=== PATIENT | female | born 1990 | race Caucasian/White ===

== ENCOUNTER 2017-03-24 11:36 | Emergency (ER) | payer BC ==
[2017-03-24] MEDS ORDERED: Lidocaine 1% PF 5 ML VIAL ONE (12:07)
== END 2017-03-24 12:40 | disposition home or self-care (01) ==
LOC: ERS 11:36
DX: L02.415 Cutaneous abscess of right lower limb (principal); J45.909 Unspecified asthma, uncomplicated; E10.9 Type 1 diabetes mellitus without complications; F17.210 Nicotine dependence, cigarettes, uncomplicated
CPT/HCPCS: 10060; J2001

== ENCOUNTER 2017-07-06 10:23 | Emergency (ER) | payer BC ==
[2017-07-06 11:15] LABS: #Basophils 0.1 thou/uL (0.0-0.2); #Eosinphils 0.6 thou/uL (0.0-0.7); #Lymphocytes 2.6 thou/uL (1.20-3.40); #Monocytes 0.4 thou/uL (0.11-0.59); #Neutrophils 7.2 thou/uL (1.40-6.50); %Basophils 0.8 % (0.0-1.0); %Eosinophils 5.5 % (0.0-10.0); %Lymphocytes 23.7 % (21.0-51.0); %Monocytes 3.9 % (0.0-10.0); Hemoglobin 15.6 g/dL (12.0-16.0); Mean Corpuscular HGB CONC 33.4 g/dL (32.0-36.0); Mean Corpuscular Hemoglobin 28.6 pg (27.0-31.0); Mean Corpuscular Volume 85.7 fl (81.0-99.0); Mean Platelet Volume 8.8 fL (7.4-10.4); Platelet Count 252 thou/uL (130-400); RBC Distribution Width 12.2 % (11.5-14.5); Red Blood Cell (RBC) Count 5.44 mill/uL (4.20-5.40)
[2017-07-06 11:22] LABS: BHCG - Serum Negative (NEGATIVE); Pregs Control Background? CLEAR/WHITE (CLR/WHITE); Pregs Control Bar Appear? YES (CONTROL BAR)
[2017-07-06 11:39] LABS: ALT (SGPT) 15 U/L (8-55); AST (SGOT) 11 U/L (5-34); Alkaline Phosphatase 73 U/L (40-150); Anion Gap 15 mmol/L (10-20); BUN (Urea Nitrogen) 11 mg/dL (7.0-18.7); Bilirubin, Total 0.5 mg/dL (0.2-1.2); CK (CPK) 45 U/L (29-168); Calc. Creatinine Clearance 0 mL/min (70-130); Calcium 9.6 mg/dL (7.8-10.44); Carbon Dioxide 23 mmol/L (22-29); Chloride 104 mmol/L (98-107); Estimated GFR-MDRD Greater than 90; Globulin 3.7 g/dL (2.4-3.5); Glucose 329 mg/dL (70-105); Lipase 32 U/L (8-78); Potassium 3.9 mmol/L (3.5-5.1); Protein, Total 7.7 g/dL (6.0-8.3); Sodium 138 mmol/L (136-145)
[2017-07-06 11:42] LABS: Bilirubin Negative (Negative); Blood, Urine Negative (Negative); Clarity CLEAR (Clear); Glucose, Urine (Dipstick) >=1000 mg/dL (Negative); Leukocyte Negative (Negative); Nitrite Positive (Negative); Protein, Urine (Dipstick) Negative (Neg-Trace)
[2017-07-06 11:44] LABS: CKMB 1.2 ng/mL (0-6.6); Troponin I Less than 0.010 ng/mL (< 0.028)
[2017-07-06 11:45] LABS: Bacteria/HPF 4+ HPF (None Seen); Hyaline Casts/LPF 0-3 HYALINE CAST LPF (0-3 Hyaline); Pathc Cast-AUWi Flag 0.27 (0-2.49); Squamous Epithelial 0-3 HPF (0-3)
[2017-07-06 11:54] LABS: Specific Gravity, Urine 1.043 (1.002-1.036)
--- NOTE | 2017-07-06 11:58 | RAD ---
PORTABLE AP CHEST RADIOGRAPH: Date: 07-06-17 History: Chest pain. Comparison: 10-20-14 FINDINGS: Cardiac silhouette and pulmonary vasculature are within normal limits. The lungs remain clear. There has been no interval change when compared to the prior exam. IMPRESSION: No acute cardiopulmonary process. POS: [facility]
--- NOTE | 2017-07-24 22:09 | EKG ---
Test Reason : Blood Pressure : / mmHG Vent. Rate : 113 BPM Atrial Rate : 113 BPM P-R Int : 124 ms QRS Dur : 096 ms QT Int : 338 ms P-R-T Axes : 020 096 015 degrees QTc Int : 463 ms Sinus tachycardia Rightward axis Borderline ECG Confirmed by VIANEY CORRAL, LUCIA ([id number]), editor index KIMBER ROGERS ([id number]) on 07/24/2017 10:08:37 PM Referred By: Confirmed By:LUCIA WINTERS MD
== END 2017-07-06 13:05 | disposition home or self-care (01) ==
LOC: ERS 10:23
DX: R07.9 Chest pain, unspecified (principal); E86.0 Dehydration; N39.0 Urinary tract infection, site not specified; J11.1 Influenza due to unidentified influenza virus with other respiratory manifestations; E10.9 Type 1 diabetes mellitus without complications; F17.210 Nicotine dependence, cigarettes, uncomplicated; I10 Essential (primary) hypertension; J45.909 Unspecified asthma, uncomplicated; Z79.4 Long term (current) use of insulin; Z79.899 Other long term (current) drug therapy
CPT/HCPCS: 36415; 36416; 71045; 80053; 81003; 81015; 82010; 82550; 82553; 83690; 84484; 84703; 85025; 87804; 93005; 96361; 96374

== ENCOUNTER 2017-07-23 20:31 | Emergency (ER) | payer BC ==
[2017-07-23 21:07] LABS: Bilirubin Negative (Negative); Blood, Urine Negative (Negative); Clarity CLEAR (Clear); Glucose, Urine (Dipstick) >=1000 mg/dL (Negative); Leukocyte Negative (Negative); Nitrite Negative (Negative); Protein, Urine (Dipstick) Trace mg/dL (Neg-Trace); Specific Gravity, Urine 1.043 (1.002-1.036); Urobilinogen 0.2 mg/dL (0.2-1.0); pH, Urine 5.5 (5.0-9.0)
[2017-07-23 21:41] LABS: Pregnancy Test - Urine (BHCG) Negative (Negative); Pregu Control Background? CLEAR/WHITE (CLR/WHITE); Pregu Control Bar Appear? YES (CONTROL BAR); Specific Gravity 1.043 (1.002-1.036)
[2017-07-23 22:01] LABS: #Basophils 0.1 thou/uL (0.0-0.2); #Eosinphils 0.6 thou/uL (0.0-0.7); #Lymphocytes 3.8 thou/uL (1.20-3.40); #Monocytes 0.5 thou/uL (0.11-0.59); #Neutrophils 5.7 thou/uL (1.40-6.50); %Monocytes 4.7 % (0.0-10.0); %Neutrophils 53.3 % (42.0-75.0); Hemoglobin 14.6 g/dL (12.0-16.0); Mean Corpuscular HGB CONC 33.1 g/dL (32.0-36.0); Mean Corpuscular Hemoglobin 28.5 pg (27.0-31.0); Mean Corpuscular Volume 86.1 fl (81.0-99.0); Platelet Count 263 thou/uL (130-400); RBC Distribution Width 12.6 % (11.5-14.5); Red Blood Cell (RBC) Count 5.14 mill/uL (4.20-5.40); White Blood Cell (WBC) Count 10.7 thou/uL (4.8-10.8)
[2017-07-23 22:23] LABS: ALT (SGPT) 19 U/L (8-55); AST (SGOT) 11 U/L (5-34); Albumin 4.2 g/dL (3.5-5.0); Alkaline Phosphatase 69 U/L (40-150); Anion Gap 15 mmol/L (10-20); BUN (Urea Nitrogen) 11 mg/dL (7.0-18.7); Bilirubin, Total 0.4 mg/dL (0.2-1.2); Calc. Creatinine Clearance 0 mL/min (70-130); Calcium 9.7 mg/dL (7.8-10.44); Carbon Dioxide 24 mmol/L (22-29); Chloride 104 mmol/L (98-107); Estimated GFR-MDRD Greater than 90; Globulin 3.4 g/dL (2.4-3.5); Glucose 209 mg/dL (70-105); Protein, Total 7.6 g/dL (6.0-8.3); Sodium 139 mmol/L (136-145)
[2017-07-23] MEDS ORDERED: Ketorolac Tromethamine 30 MG/ML VIAL ONE (23:13)
--- NOTE | 2017-07-23 23:32 | CT ---
ABDOMEN CT WITHOUT CONTRAST PELVIC CT WITHOUT CONTRAST 07/23/17 HISTORY: Abdominal pain. Right flank pain. COMPARISON: 12/28/16. TECHNIQUE: Abdomen and pelvic CT performed without IV or oral contrast. Coronal reformatted images are submitted for interpretation. FINDINGS: ABDOMEN CT: The lung bases are clear. Heart size is normal. No significant pericardial effusion. The visualized a ricardo has a normal caliber. No periaortic fat stranding. Symmetric attenuation of the psoas muscles. Contracted gallbladder likely due to nonfasting state. Limited evaluation of the solid organs due to lack of IV contrast. Grossly, the solid organs are unremarkable. No gastrohepatic, retrocrural or per iportal lymphadenopathy. There are a few scattered nonspecific mesenteric lymph nodes. No mesenteric mass, free air or free fl uid. Limited evaluation of the alimentary canal due to lack of oral contrast. No evidence of bowel obstruc tion. No caliber appendix. Minimal diverticulosis of the sigmoid colon. No diverticulitis. Bilaterally, no hydronephrosis, nephrolithiasis or perinephric fat stranding. Bilateral ureters have a normal caliber. No hydroureter, periureteral fat stranding or ureterolithiasis. Stable hypodensity in the left renal cortex, too small to characterize. PELVIC CT: The uterus and adnexal structures are grossly unremarkable. Urinary bladder is unremarkable. No pelvi c mass, lymphadenopathy, free air or free fluid. Chronic changes to the visualized spine. IMPRESSION: 1. No evidence of nephrolithiasis or obstructive uropathy. 2. Normal caliber appendix. 3. Chronic changes to the thoracic and lumbar spine. POS: [facility]
== END 2017-07-23 23:37 | disposition home or self-care (01) ==
LOC: ERS 20:31
DX: R10.31 Right lower quadrant pain (principal); E10.9 Type 1 diabetes mellitus without complications; Z79.84 Long term (current) use of oral hypoglycemic drugs; Z79.899 Other long term (current) drug therapy
CPT/HCPCS: 74176; 80053; 81003; 81025; 85025; 87086; 96361; 96374; J1885

== ENCOUNTER 2017-12-19 11:24 | Emergency (ER) | payer BC ==
--- NOTE | 2017-12-19 12:26 | RAD ---
TWO VIEWS OF THE RIGHT FOREARM: COMPARISON: None. HISTORY: Fell in the shower with right forearm and elbow pain. FINDINGS: Two views of right forearm show no evidence of acute fracture or dislocation. Mild soft tissue swell ing is seen. No degenerative changes are seen. IMPRESSION: No evidence of acute osseous abnormality. POS: [facility]
--- NOTE | 2017-12-19 12:28 | RAD ---
FOUR VIEWS OF THE RIGHT ELBOW: COMPARISON: 08/21/15. HISTORY: Fall in the shower with elbow pain. FINDINGS: Four views of the right elbow show no evidence of acute fracture or dislocation. No elbow effusion i s seen. Mild soft tissue swelling is seen. No degenerative changes are present. IMPRESSION: No evidence of acute osseous abnormality. POS: [facility]
[2017-12-19] MEDS ORDERED: Ketorolac Tromethamine 30 MG/ML VIAL ONE (12:54)
[2017-12-19] MEDS ORDERED: Bacitracin Zinc 1 Packet ONE (12:57)
== END 2017-12-19 16:30 | disposition home or self-care (01) ==
LOC: ERS 11:24
DX: S50.01XA Contusion of right elbow, initial encounter (principal); E10.9 Type 1 diabetes mellitus without complications; F41.9 Anxiety disorder, unspecified; F32.9 Major depressive disorder, single episode, unspecified; F17.210 Nicotine dependence, cigarettes, uncomplicated; Z79.899 Other long term (current) drug therapy; Z79.4 Long term (current) use of insulin; W18.11XA Fall from or off toilet without subsequent striking against object, initial encounter; Y92.002 Bathroom of unspecified non-institutional (private) residence as the place of occurrence of the external cause
CPT/HCPCS: 96372; J1885

== ENCOUNTER 2018-04-18 21:25 | Emergency (ER) | payer BC ==
[2018-04-18 22:21] LABS: Bilirubin Negative (Negative); Blood, Urine Trace (Negative); Clarity CLOUDY (Clear); Glucose, Urine (Dipstick) 100 mg/dL (Negative); Leukocyte Small (Negative); Nitrite Negative (Negative); Protein, Urine (Dipstick) 300 mg/dL (Neg-Trace); Specific Gravity, Urine 1.018 (1.002-1.036); Urobilinogen 0.2 mg/dL (0.2-1.0)
[2018-04-18 22:26] LABS: Bacteria/HPF 2+ HPF (None Seen)
[2018-04-18 22:28] LABS: Pathc Cast-AUWi Flag 9.01 (0-2.49)
[2018-04-18 22:30] LABS: #Eosinphils 0.1 thou/uL (0.0-0.7); #Lymphocytes 2.5 thou/uL (1.20-3.40); #Monocytes 0.8 thou/uL (0.11-0.59); #Neutrophils 10.9 thou/uL (1.40-6.50); %Basophils 0.2 % (0.0-1.0); %Eosinophils 0.9 % (0.0-10.0); %Lymphocytes 17.6 % (21.0-51.0); %Monocytes 5.3 % (0.0-10.0); Hemoglobin 13.4 g/dL (12.0-16.0); Mean Corpuscular HGB CONC 33.2 g/dL (32.0-36.0); Mean Corpuscular Volume 84.2 fL (78.0-98.0); Mean Platelet Volume 8.8 fL (7.4-10.4); Platelet Count 284 thou/uL (130-400); RBC Distribution Width 12.2 % (11.5-14.5); Red Blood Cell (RBC) Count 4.79 mill/uL (4.20-5.40); White Blood Cell (WBC) Count 14.3 thou/uL (4.8-10.8)
[2018-04-18 22:44] LABS: Crystals/HPF 1+ CA OXALATE HPF (Negative)
[2018-04-18 22:48] LABS: Pregu Control Background? CLEAR/WHITE (CLR/WHITE); Pregu Control Bar Appear? YES (CONTROL BAR); Specific Gravity 1.018 (1.002-1.036)
[2018-04-18 22:51] LABS: Pregnancy Test - Urine (BHCG) Negative (Negative)
[2018-04-18 22:55] LABS: ALT (SGPT) 16 U/L (8-55); AST (SGOT) 10 U/L (5-34); Albumin 4.3 g/dL (3.5-5.0); Alkaline Phosphatase 55 U/L (40-150); Anion Gap 12 mmol/L (10-20); BUN (Urea Nitrogen) 16 mg/dL (7.0-18.7); Bilirubin, Total 0.6 mg/dL (0.2-1.2); Calc. Creatinine Clearance 0 mL/min (70-130); Carbon Dioxide 25 mmol/L (22-29); Chloride 104 mmol/L (98-107); Estimated GFR-MDRD 73; Globulin 3.5 g/dL (2.4-3.5); Glucose 196 mg/dL (70-105); Potassium 3.8 mmol/L (3.5-5.1); Protein, Total 7.8 g/dL (6.0-8.3); Sodium 137 mmol/L (136-145)
[2018-04-18] MEDS ORDERED: Ondansetron PF 4 MG/2 ML Vial ONE (23:05)
[2018-04-18] MEDS ORDERED: Ketorolac Tromethamine 30 MG/ML VIAL ONE (23:05)
== END 2018-04-19 00:08 | disposition home or self-care (01) ==
LOC: ERS 21:25
DX: N39.0 Urinary tract infection, site not specified (principal); E10.9 Type 1 diabetes mellitus without complications; F32.9 Major depressive disorder, single episode, unspecified; F41.9 Anxiety disorder, unspecified; J45.909 Unspecified asthma, uncomplicated; F17.210 Nicotine dependence, cigarettes, uncomplicated; Z71.6 Tobacco abuse counseling
CPT/HCPCS: 80053; 81003; 81015; 81025; 85025; 87804; 96361; 96374; 96375; 99406; J1885; J2405

== ENCOUNTER 2018-07-01 12:43 | Emergency (ER) | payer BC ==
[2018-07-01 14:27] LABS: #Eosinphils 0.3 thou/uL (0.0-0.7); #Lymphocytes 2.4 thou/uL (1.20-3.40); #Monocytes 0.5 thou/uL (0.11-0.59); #Neutrophils 6.4 thou/uL (1.40-6.50); %Basophils 0.2 % (0.0-1.0); %Eosinophils 2.7 % (0.0-10.0); %Lymphocytes 25.1 % (21.0-51.0); %Monocytes 4.8 % (0.0-10.0); %Neutrophils 67.1 % (42.0-75.0); Hemoglobin 13.1 g/dL (12.0-16.0); Mean Corpuscular HGB CONC 33.7 g/dL (32.0-36.0); Mean Corpuscular Hemoglobin 28.1 pg (27.0-31.0); Mean Corpuscular Volume 83.4 fL (78.0-98.0); Mean Platelet Volume 8.6 fL (7.4-10.4); Platelet Count 287 thou/uL (130-400); RBC Distribution Width 12.3 % (11.5-14.5); Red Blood Cell (RBC) Count 4.66 mill/uL (4.20-5.40); White Blood Cell (WBC) Count 9.5 thou/uL (4.8-10.8)
[2018-07-01 14:52] LABS: ALT (SGPT) 22 U/L (8-55); AST (SGOT) 15 U/L (5-34); Albumin 4.1 g/dL (3.5-5.0); Alkaline Phosphatase 64 U/L (40-150); Anion Gap 12 mmol/L (10-20); BUN (Urea Nitrogen) 10 mg/dL (7.0-18.7); Bilirubin, Total 0.7 mg/dL (0.2-1.2); Calc. Creatinine Clearance 0 mL/min (70-130); Calcium 9.3 mg/dL (7.8-10.44); Carbon Dioxide 24 mmol/L (22-29); Chloride 105 mmol/L (98-107); Estimated GFR-MDRD Greater than 90; Globulin 3.6 g/dL (2.4-3.5); Glucose 150 mg/dL (70-105); Potassium 3.8 mmol/L (3.5-5.1); Protein, Total 7.7 g/dL (6.0-8.3); Sodium 137 mmol/L (136-145)
[2018-07-01 15:04] LABS: Pregnancy Test - Urine (BHCG) Negative (Negative); Pregu Control Background? CLEAR/WHITE (CLR/WHITE); Pregu Control Bar Appear? YES (CONTROL BAR); Specific Gravity 1.023 (1.002-1.036)
--- NOTE | 2018-07-01 15:29 | RAD ---
RIGHT FOOT THREE VIEWS: HISTORY: Pain. COMPARISON: None. FINDINGS: No acute fracture or malalignment. Lisfranc interval is maintained. No periostitis or erosions. IMPRESSION: No evidence for osteomyelitis. POS: [facility]
[2018-07-01] MEDS ORDERED: Bacitracin Zinc 1 Packet ONE (15:49)
== END 2018-07-01 15:53 | disposition home or self-care (01) ==
LOC: ERS 12:43
DX: L03.031 Cellulitis of right toe (principal); E10.9 Type 1 diabetes mellitus without complications; J45.909 Unspecified asthma, uncomplicated; F41.9 Anxiety disorder, unspecified; F32.9 Major depressive disorder, single episode, unspecified; F17.210 Nicotine dependence, cigarettes, uncomplicated; Z79.84 Long term (current) use of oral hypoglycemic drugs; Z79.899 Other long term (current) drug therapy
CPT/HCPCS: 36415; 36416; 80053; 81025; 85025

== ENCOUNTER 2018-08-04 12:03 | Emergency (ER) | payer BC | END 2018-08-04 13:18 | disposition home or self-care (01) | LOC: ERS 12:03 | DX: J06.9 Acute upper respiratory infection, unspecified (principal); E10.9 Type 1 diabetes mellitus without complications; F17.210 Nicotine dependence, cigarettes, uncomplicated | CPT/HCPCS: 87804; 99284 ==

== ENCOUNTER 2019-01-15 10:45 | Emergency (ER) | payer BC, SELFPAY ==
[2019-01-15 11:14] LABS: Bilirubin Negative (Negative); Blood, Urine Negative (Negative); Clarity Clear (Clear); Glucose, Urine (Dipstick) Normal (Negative); Leukocyte Negative Leu/uL (Negative); Nitrite Negative (Negative); Protein, Urine (Dipstick) Negative (Neg-Trace); Urobilinogen Normal mg/dL (Less than 2)
[2019-01-15 11:20] LABS: Pregnancy Test - Urine (BHCG) POSITIVE (Negative); Pregu Control Background? CLEAR/WHITE (CLR/WHITE); Pregu Control Bar Appear? YES (CONTROL BAR)
[2019-01-15] MEDS ORDERED: cefTRIAXone\\ROCEPHIN 250 MG VIAL ONE (11:49)
[2019-01-15] MEDS ORDERED: Lidocaine 1% PF 5 ML VIAL ONE (11:50)
[2019-01-15] MEDS ORDERED: Azithromycin 250 MG TAB ONE (11:50)
[2019-01-17 01:28] LABS: Chlamydia by PCR DETECTED (NotDetected); GC by PCR Not Detected (NotDetected)
== END 2019-01-15 12:07 | disposition home or self-care (01) ==
LOC: ERS 10:45
DX: O99.89 Other specified diseases and conditions complicating pregnancy, childbirth and the puerperium (principal); N89.8 Other specified noninflammatory disorders of vagina; M54.5 Low back pain; E11.9 Type 2 diabetes mellitus without complications; F32.9 Major depressive disorder, single episode, unspecified; F17.210 Nicotine dependence, cigarettes, uncomplicated; Z79.84 Long term (current) use of oral hypoglycemic drugs
CPT/HCPCS: 81003; 81025; 87086; 87480; 87491; 87510; 87591; 87660; 96372; 99283; J0696; J2001

== ENCOUNTER 2019-01-28 18:46 | Emergency (ER) | payer BC, SELFPAY ==
[2019-01-28 20:06] LABS: #Eosinphils 0.2 thou/uL (0.0-0.7); #Lymphocytes 2.5 thou/uL (1.20-3.40); #Monocytes 0.7 thou/uL (0.11-0.59); #Neutrophils 9.4 thou/uL (1.40-6.50); %Basophils 0.1 % (0.0-1.0); %Eosinophils 1.3 % (0.0-10.0); %Lymphocytes 19.8 % (21.0-51.0); %Monocytes 5.4 % (0.0-10.0); %Neutrophils 73.4 % (42.0-75.0); Hemoglobin 12.6 g/dL (12.0-16.0); Mean Corpuscular Hemoglobin 29.3 pg (27.0-31.0); Mean Corpuscular Volume 86.1 fL (78.0-98.0); Mean Platelet Volume 8.4 fL (7.4-10.4); Platelet Count 268 thou/uL (130-400); RBC Distribution Width 12.1 % (11.5-14.5); Red Blood Cell (RBC) Count 4.31 mill/uL (4.20-5.40); White Blood Cell (WBC) Count 12.8 thou/uL (4.8-10.8)
--- NOTE | 2019-01-28 20:13 | ULT ---
PELVIC ULTRASOUND INCLUDING TRANSABDOMINAL, TRANSVAGINAL, AND VASCULAR DUPLEX WITH COLOR AND SPECTRAL DOPPLER IMAGIN01/28/19 HISTORY: Pelvic pain, history of prior HCG done three weeks ago with vaginal bleeding. The uterus measures 7.5 cm in length and 3.1 x 3.6 cm transversely. Endometrium approximates 0.7 cm. 1.4 x 1.7 cm left ovarian follicle cyst. Right ovary appears unremarkable. No evidence for intrauteri ne or extrauterine . Vascular duplex with color and spectral Doppler imaging demonstrates no evidence for ovarian torsion. IMPRESSION: Unremarkable uterus. No evidence for an intrauterine or extrauterine . Correlate with serum HCG. POS: [facility]
[2019-01-28 20:20] LABS: Bacteria/HPF None Seen HPF (None Seen); Bilirubin Negative (Negative); Blood, Urine 1+ (Negative); Clarity Clear (Clear); Glucose, Urine (Dipstick) 100 mg/dL (Negative); Leukocyte Negative Leu/uL (Negative); Nitrite Negative (Negative); Protein, Urine (Dipstick) 10 mg/dL (Neg-Trace); Squamous Epithelial 0-3 HPF (0-3)
== END 2019-01-28 22:25 | disposition home or self-care (01) ==
LOC: ERS 18:46
DX: O20.0 Threatened abortion (principal); Z71.6 Tobacco abuse counseling; O24.111 Pre-existing type 2 diabetes mellitus, in pregnancy, first trimester; E11.9 Type 2 diabetes mellitus without complications; O99.511 Diseases of the respiratory system complicating pregnancy, first trimester; J45.909 Unspecified asthma, uncomplicated; O99.341 Other mental disorders complicating pregnancy, first trimester; F41.9 Anxiety disorder, unspecified; F32.9 Major depressive disorder, single episode, unspecified; O99.331 Smoking (tobacco) complicating pregnancy, first trimester; F17.210 Nicotine dependence, cigarettes, uncomplicated; Z79.84 Long term (current) use of oral hypoglycemic drugs; Z3A.08 8 weeks gestation of pregnancy
CPT/HCPCS: 36415; 76856; 81003; 81015; 84702; 85025; 86900; 86901; 87086; 90384; 96372; 99406

== ENCOUNTER 2019-04-21 14:47 | Emergency (ER) | payer BC ==
[2019-04-21] MEDS ORDERED: Ondansetron PF 4 MG/2 ML Vial ONE (15:17)
[2019-04-21] MEDS ORDERED: Famotidine/PF 20 mg/2ml Vial ONE (15:17)
[2019-04-21 15:30] LABS: #Eosinphils 0.1 thou/uL (0.0-0.7); #Lymphocytes 0.9 thou/uL (1.20-3.40); #Monocytes 0.3 thou/uL (0.11-0.59); #Neutrophils 12.9 thou/uL (1.40-6.50); %Basophils 0.1 % (0.0-1.0); %Eosinophils 0.9 % (0.0-10.0); %Lymphocytes 6.5 % (21.0-51.0); %Monocytes 2.3 % (0.0-10.0); %Neutrophils 90.2 % (42.0-75.0); Hemoglobin 15.2 g/dL (12.0-16.0); Mean Corpuscular HGB CONC 33.3 g/dL (32.0-36.0); Mean Corpuscular Hemoglobin 28.6 pg (27.0-31.0); Mean Corpuscular Volume 85.9 fL (78.0-98.0); Mean Platelet Volume 8.8 fL (7.4-10.4); Platelet Count 275 thou/uL (130-400); RBC Distribution Width 12.2 % (11.5-14.5); Red Blood Cell (RBC) Count 5.33 mill/uL (4.20-5.40); White Blood Cell (WBC) Count 14.4 thou/uL (4.8-10.8)
[2019-04-21 15:40] LABS: BHCG - Serum Negative (NEGATIVE); Pregs Control Background? CLEAR/WHITE (CLR/WHITE); Pregs Control Bar Appear? YES (CONTROL BAR)
[2019-04-21 15:55] LABS: ALT (SGPT) 24 U/L (8-55); AST (SGOT) 14 U/L (5-34); Albumin 4.5 g/dL (3.5-5.0); Alkaline Phosphatase 91 U/L (40-110); Anion Gap 15 mmol/L (10-20); BUN (Urea Nitrogen) 15 mg/dL (7.0-18.7); Bilirubin, Total 0.9 mg/dL (0.2-1.2); CK (CPK) 103 U/L (29-168); Calc. Creatinine Clearance 0 mL/min (70-130); Calcium 9.3 mg/dL (7.8-10.44); Carbon Dioxide 25 mmol/L (22-29); Chloride 101 mmol/L (98-107); Estimated GFR-MDRD Greater than 90; Glucose 222 mg/dL (70-105); Lipase 18 U/L (8-78); Magnesium 1.6 mg/dL (1.6-2.6); Potassium 3.8 mmol/L (3.5-5.1); Protein, Total 8.5 g/dL (6.0-8.3); Sodium 137 mmol/L (136-145)
== END 2019-04-21 18:45 | disposition home or self-care (01) ==
LOC: ERS 14:47
DX: R11.2 Nausea with vomiting, unspecified (principal); R19.7 Diarrhea, unspecified; R10.9 Unspecified abdominal pain; F17.210 Nicotine dependence, cigarettes, uncomplicated; J45.909 Unspecified asthma, uncomplicated; E11.9 Type 2 diabetes mellitus without complications; Z79.84 Long term (current) use of oral hypoglycemic drugs
CPT/HCPCS: 36416; 80053; 82550; 83605; 83690; 83735; 84703; 85025; 93005; 96361; 96372; 96374; 96375; J0500; J2405; S0028

== ENCOUNTER 2019-08-17 08:30 | Emergency (ER) | payer BC ==
[2019-08-17 09:51] LABS: #Eosinphils 0.2 thou/uL (0.0-0.7); #Lymphocytes 2.4 thou/uL (1.20-3.40); #Monocytes 0.5 thou/uL (0.11-0.59); #Neutrophils 8.3 thou/uL (1.40-6.50); %Basophils 0.2 % (0.0-1.0); %Eosinophils 1.8 % (0.0-10.0); %Lymphocytes 20.7 % (21.0-51.0); %Monocytes 4.6 % (0.0-10.0); %Neutrophils 72.6 % (42.0-75.0); Hemoglobin 14.3 g/dL (12.0-16.0); Mean Corpuscular HGB CONC 32.8 g/dL (32.0-36.0); Mean Corpuscular Hemoglobin 28.1 pg (27.0-31.0); Mean Corpuscular Volume 85.6 fL (78.0-98.0); Mean Platelet Volume 8.8 fL (7.4-10.4); Platelet Count 269 thou/uL (130-400); RBC Distribution Width 12.5 % (11.5-14.5); Red Blood Cell (RBC) Count 5.08 mill/uL (4.20-5.40); White Blood Cell (WBC) Count 11.4 thou/uL (4.8-10.8)
--- NOTE | 2019-08-17 09:51 | RAD ---
AP CHEST: Date: 08/17/2019 HISTORY: Cough. COMPARISON: 07/06/17. FINDINGS: No evidence of infiltrate seen on this portable projection. Heart and mediastinum unremarkable. IMPRESSION: No acute process seen on portable exam. If there is concern for pneumonia, upright PA and lateral bryan st recommended. POS: [facility]
[2019-08-17 10:12] LABS: ALT (SGPT) 24 U/L (8-55); AST (SGOT) 15 U/L (5-34); Albumin 4.1 g/dL (3.5-5.0); Alkaline Phosphatase 93 U/L (40-110); Anion Gap 12 mmol/L (10-20); BUN (Urea Nitrogen) 11 mg/dL (7.0-18.7); Bilirubin, Total 0.9 mg/dL (0.2-1.2); Calc. Creatinine Clearance 0 mL/min (70-130); Calcium 9.5 mg/dL (7.8-10.44); Carbon Dioxide 25 mmol/L (22-29); Chloride 102 mmol/L (98-107); Estimated GFR-MDRD Greater than 90; Globulin 3.8 g/dL (2.4-3.5); Glucose 252 mg/dL (70-105); Lipase 35 U/L (8-78); Potassium 4.2 mmol/L (3.5-5.1); Protein, Total 7.9 g/dL (6.0-8.3); Sodium 135 mmol/L (136-145)
[2019-08-17] MEDS ORDERED: hydrOXYzine 25 MG TAB ONE (10:17)
[2019-08-17 10:21] LABS: Bilirubin Negative (Negative); Blood, Urine Negative (Negative); Clarity Clear (Clear); Glucose, Urine (Dipstick) Greater than 1000 mg/dL (Negative); Leukocyte Negative Leu/uL (Negative); Nitrite Negative (Negative); Protein, Urine (Dipstick) 20 mg/dL (Neg-Trace); Urobilinogen Normal mg/dL (Less than 2)
[2019-08-17 10:26] LABS: Pregnancy Test - Urine (BHCG) Negative (Negative); Pregu Control Background? CLEAR/WHITE (CLR/WHITE); Pregu Control Bar Appear? YES (CONTROL BAR); Specific Gravity 1.033 (1.002-1.036)
== END 2019-08-17 11:47 | disposition home or self-care (01) ==
LOC: ERS 08:30
DX: F41.1 Generalized anxiety disorder (principal); F43.0 Acute stress reaction; R07.89 Other chest pain; E11.9 Type 2 diabetes mellitus without complications; J45.909 Unspecified asthma, uncomplicated; F17.210 Nicotine dependence, cigarettes, uncomplicated; Z79.84 Long term (current) use of oral hypoglycemic drugs; Z79.899 Other long term (current) drug therapy
CPT/HCPCS: 36416; 71045; 80053; 81003; 81025; 83690; 84484; 85025; 85379; 93005

== ENCOUNTER 2020-03-19 13:44 | Emergency (ER) | payer BC, OTHER ==
[2020-03-20 12:00] LABS: SARS-CoV-2 MS2 Positive; SARS-CoV-2 N Gene Negative; SARS-CoV-2 S Gene Negative; SARS-CoV-2 by NAA Not Detected (NotDetected); SARS-CoV-2 orf1ab Negative
== END 2020-03-19 14:41 | disposition home or self-care (01) ==
LOC: ERS 13:44
DX: B34.9 Viral infection, unspecified (principal); E11.9 Type 2 diabetes mellitus without complications; J45.909 Unspecified asthma, uncomplicated; F41.9 Anxiety disorder, unspecified; F32.9 Major depressive disorder, single episode, unspecified; F17.210 Nicotine dependence, cigarettes, uncomplicated; Z79.84 Long term (current) use of oral hypoglycemic drugs
CPT/HCPCS: 36416; 87635; 99284; U0003

== ENCOUNTER 2020-12-24 10:04 | Emergency (ER) | payer BC ==
[2020-12-24 13:09] LABS: SARS-CoV-2 NAA Rapid Test Not Detected (NotDetected)
== END 2020-12-24 13:51 | disposition home or self-care (01) ==
LOC: ERS 10:04
DX: H65.191 Other acute nonsuppurative otitis media, right ear (principal); E11.9 Type 2 diabetes mellitus without complications; Z20.822 Contact with and (suspected) exposure to COVID-19; F17.210 Nicotine dependence, cigarettes, uncomplicated; Z79.84 Long term (current) use of oral hypoglycemic drugs; Z79.899 Other long term (current) drug therapy
CPT/HCPCS: 99283; U0002; U0005

== ENCOUNTER 2020-12-30 11:50 | Emergency (ER) | payer BC ==
[2020-12-30] MEDS ORDERED: Dexamethasone 4 MG TAB ONE (13:16)
== END 2020-12-30 13:08 | disposition home or self-care (01) ==
LOC: ERS 11:50
DX: J45.909 Unspecified asthma, uncomplicated (principal); F17.210 Nicotine dependence, cigarettes, uncomplicated; E11.9 Type 2 diabetes mellitus without complications; Z79.84 Long term (current) use of oral hypoglycemic drugs; Z71.6 Tobacco abuse counseling; Z79.899 Other long term (current) drug therapy
CPT/HCPCS: 94640; 99406; J7620; J8540

== ENCOUNTER 2021-04-24 12:29 | Emergency (ER) | payer BC ==
[2021-04-24] MEDS ORDERED: manNITOL 20% 0 ML ONE (15:15)
[2021-04-24] MEDS ORDERED: Mannitol 12.5 GM/50 ML ONE (15:16)
[2021-04-24] MEDS ORDERED: manNITOL 20% 500 ML ONE (15:16)
[2021-04-24 22:40] LABS: SARS-CoV-2 PCR by NAA Not Detected (NotDetected)
== END 2021-04-24 13:30 | disposition home or self-care (01) ==
LOC: ERS 12:29
DX: R05.9 Cough, unspecified (principal); R09.89 Other specified symptoms and signs involving the circulatory and respiratory systems; Z20.822 Contact with and (suspected) exposure to COVID-19; Z79.899 Other long term (current) drug therapy; Z79.84 Long term (current) use of oral hypoglycemic drugs; E11.9 Type 2 diabetes mellitus without complications; F17.210 Nicotine dependence, cigarettes, uncomplicated
CPT/HCPCS: 99283; J2150; J7799; U0003; U0005

== ENCOUNTER 2021-08-21 08:34 | Emergency (ER) | payer BC, SELFPAY | END 2021-08-21 12:14 | disposition home or self-care (01) | LOC: ERS 08:34 | DX: S70.02XA Contusion of left hip, initial encounter (principal); E11.9 Type 2 diabetes mellitus without complications; F17.210 Nicotine dependence, cigarettes, uncomplicated; Z79.899 Other long term (current) drug therapy; Z79.84 Long term (current) use of oral hypoglycemic drugs; W00.0XXA Fall on same level due to ice and snow, initial encounter ==

== ENCOUNTER 2021-12-20 11:01 | Emergency (ER) | payer BC, SELFPAY ==
[2021-12-20] MEDS ORDERED: HYDROcodone/Acetaminophen 5/325 mg Tablet ONE (13:05)
[2021-12-20] MEDS ORDERED: Lidocaine 4% Cream 5 GM TUBE w/ Tegaderm ONE ×2 (13:26→16:04)
[2021-12-20] MEDS ORDERED: Lidocaine 1% w/Epinephrine 1:100K 20 ML VIAL ONE (13:26)
== END 2021-12-20 17:34 | disposition home or self-care (01) ==
LOC: ERS 11:01
DX: L02.11 Cutaneous abscess of neck (principal); L03.221 Cellulitis of neck; E11.9 Type 2 diabetes mellitus without complications; F17.210 Nicotine dependence, cigarettes, uncomplicated; Z79.899 Other long term (current) drug therapy; Z79.84 Long term (current) use of oral hypoglycemic drugs
CPT/HCPCS: 96372; 99283

== ENCOUNTER 2022-03-11 12:13 | Emergency (ER) | payer BC | END 2022-03-11 12:46 | disposition left against medical advice (07) | LOC: ERS 12:13 | DX: Z53.21 Procedure and treatment not carried out due to patient leaving prior to being seen by health care provider (principal) ==

== ENCOUNTER 2022-05-29 12:58 | Inpatient (IN) | payer BC ==
[2022-05-29] MEDS ORDERED: fentaNYL PF 100 MCG/2 ML SYRINGE ONE ×2 (14:07→15:53)
[2022-05-29] MEDS ORDERED: Bupivacaine/Epinephrine 0.25% 30 ML VIAL ONE (14:10)
[2022-05-29] MEDS ORDERED: Sodium Chloride 0.9% 0 ML ONE (14:16)
[2022-05-29] MEDS ORDERED: CEFAZOLIN 2 GM VIAL ONE (14:16)
[2022-05-29] MEDS ORDERED: NEOSTIGMINE 3 MG/3 ML SYR 3 MG/3 ML SYRINGE ONE (14:33)
[2022-05-29] MEDS ORDERED: PROPOFOL 200 MG/20 ML VIAL ONE (14:33)
[2022-05-29] MEDS ORDERED: ePHEDrine 50 MG/ML VIAL ONE (14:33)
[2022-05-29] MEDS ORDERED: Ondansetron PF 4 MG/2 ML Vial ONE (14:33)
[2022-05-29] MEDS ORDERED: Rocuronium Bromide 10 MG/ML (10ML VIAL) ONE (14:33)
[2022-05-29] MEDS ORDERED: Ketorolac Tromethamine 30 MG/ML VIAL ONE (14:33)
[2022-05-29] MEDS ORDERED: Glycopyrrolate 0.2 MG/ML 5 ML SYRINGE ONE (14:33)
[2022-05-29] MEDS ORDERED: Dexamethasone 20 MG/5 ML VIAL ONE (14:33)
[2022-05-29] MEDS ORDERED: Promethazine HCl 25 MG/ML VIAL ONE (16:11)
[2022-05-29] MEDS ORDERED: HYDROcodone/Acetaminophen 5/325 mg Tablet PO PRN (19:20)
[2022-05-29] MEDS ORDERED: Acetaminophen 325 MG TAB PO PRN ×2 (19:25→19:26)
[2022-05-29] MEDS ORDERED: Ibuprofen 200 MG TAB PO PRN (19:26)
[2022-05-29 19:27] VITALS: BMI 28.1
[2022-05-29] MEDS ORDERED: Ondansetron PF 4 MG/2 ML Vial IVP PRN (19:27)
[2022-05-29] MEDS ORDERED: Morphine 4 MG/ML VIAL SLOW IVP PRN (19:28)
[2022-05-29] MEDS: HYDROcodone/Acetaminophen 5/325 mg Tablet PO PRN (19:35)
[2022-05-29] MEDS ORDERED: Insulin Regular 300 UNITS/3 ML VIAL SC PRN ×2 (19:45)
[2022-05-29] MEDS ORDERED: Dextrose 5% in Water 1,000 ML IV PRN (19:45)
[2022-05-29] MEDS ORDERED: Dextrose 50% Abboject 50 ML SYRINGE IVP PRN (19:45)
[2022-05-29] MEDS: metroNIDAZOLE 500 MG in Premix Bag 1 BAG IVPB SCH (20:16)
[2022-05-29] MEDS: metFORMIN 500 MG TAB PO SCH (20:51)
[2022-05-29] MEDS: Morphine 4 MG/ML VIAL SLOW IVP PRN (21:25)
[2022-05-29] MEDS: cefTRIAXone\\ROCEPHIN 1 GM in Sodium Chloride 0.9% 100 ML IVPB SCH (21:32)
[2022-05-30] MEDS: metroNIDAZOLE 500 MG in Premix Bag 1 BAG IVPB SCH ×4 (02:30→19:34)
[2022-05-30] MEDS: HYDROcodone/Acetaminophen 5/325 mg Tablet PO PRN ×2 (05:58→19:36)
[2022-05-30 06:34] LABS: Anion Gap 14 mmol/L (10-20); BUN (Urea Nitrogen) 13 mg/dL (7.0-18.7); Calc. Creatinine Clearance 149 mL/min (70-130); Calcium 8.6 mg/dL (7.8-10.44); Carbon Dioxide 23 mmol/L (22-29); Chloride 106 mmol/L (98-107); Estimated GFR 112; Glucose 289 mg/dL (70-105); Potassium 3.8 mmol/L (3.5-5.1); Sodium 139 mmol/L (136-145)
[2022-05-30 06:48] LABS: Hemoglobin 11.4 g/dL (12.0-16.0); Mean Corpuscular HGB CONC 31.9 g/dL (32.0-36.0); Mean Corpuscular Hemoglobin 27.9 pg (27.0-31.0); Mean Corpuscular Volume 87.3 fl (78.0-98.0); Mean Platelet Volume 9.4 fL (7.4-10.4); Platelet Count 248 10x3/uL (130-400); RBC Distribution Width 12.1 % (11.5-14.5); White Blood Cell (WBC) Count 20.3 10x3/uL (4.8-10.8)
[2022-05-30 06:49] LABS: Band 5 % (5-11); Lymphocytes 7 % (21-51); MDiff Complete? YES; Monocytes 1 % (0-10); Neutrophil 87 % (42-75)
[2022-05-30] MEDS: Lisinopril 2.5 MG TAB PO SCH (09:27)
[2022-05-30] MEDS: metFORMIN 500 MG TAB PO SCH ×2 (09:29→20:47)
[2022-05-30] MEDS: cefTRIAXone\\ROCEPHIN 1 GM in Sodium Chloride 0.9% 100 ML IVPB SCH (20:47)
[2022-05-30] MEDS: Morphine 4 MG/ML VIAL SLOW IVP PRN (20:50)
[2022-05-31] MEDS: metroNIDAZOLE 500 MG in Premix Bag 1 BAG IVPB SCH ×3 (01:15→16:06)
[2022-05-31 06:40] LABS: #Eosinphils 0.1 thou/uL (0.0-0.7); #Lymphocytes 2.2 thou/uL (1.20-3.40); #Monocytes 0.7 thou/uL (0.11-0.59); %Basophils 0.1 % (0.0-1.0); %Eosinophils 1.1 % (0.0-10.0); %Lymphocytes 16.9 % (21.0-51.0); %Monocytes 5.1 % (0.0-10.0); %Neutrophils 76.9 % (42.0-75.0); Mean Corpuscular HGB CONC 31.7 g/dL (32.0-36.0); Mean Corpuscular Hemoglobin 28.1 pg (27.0-31.0); Mean Corpuscular Volume 88.7 fl (78.0-98.0); Mean Platelet Volume 9.5 fL (7.4-10.4); Platelet Count 228 10x3/uL (130-400); RBC Distribution Width 12.1 % (11.5-14.5); Red Blood Cell (RBC) Count 3.55 mill/uL (4.20-5.40)
[2022-05-31] MEDS: Lisinopril 2.5 MG TAB PO SCH (09:30)
[2022-05-31] MEDS: metFORMIN 500 MG TAB PO SCH (09:30)
[2022-05-31] MEDS: Morphine 4 MG/ML VIAL SLOW IVP PRN (09:31)
[2022-05-31] MEDS: HYDROcodone/Acetaminophen 5/325 mg Tablet PO PRN ×3 (11:18→18:44)
[2022-05-31] MEDS ORDERED: cefTRIAXone\\ROCEPHIN 1 GM in Sodium Chloride 0.9% 100 ML IVPB SCH (17:30)
[2022-05-31 18:41] VITALS: BP 126/82; TEMP 98.4
== END 2022-05-31 19:30 | disposition home or self-care (01) | DRG 340 ==
LOC: SDC 12:58 → SURG A 16:03
PROVIDERS: ADMIT Surgery; ATTEND Surgery
PROC: 0DTJ4ZZ Resection of Appendix, Percutaneous Endoscopic Approach (ICD-10-PCS; principal; 2022-05-29)
DX: K35.32 Acute appendicitis with perforation, localized peritonitis, and gangrene, without abscess (principal); E11.65 Type 2 diabetes mellitus with hyperglycemia; Z98.51 Tubal ligation status; Z82.3 Family history of stroke; Z82.49 Family history of ischemic heart disease and other diseases of the circulatory system; Z83.3 Family history of diabetes mellitus; Z88.1 Allergy status to other antibiotic agents; Z88.0 Allergy status to penicillin; Z79.899 Other long term (current) drug therapy; Z79.84 Long term (current) use of oral hypoglycemic drugs
CPT/HCPCS: 36415; 36416; 80048; 85025; 88304; J0696; J1100; J1815; J1885; J2270; J2405; J2550; J2704; J3490

== ENCOUNTER 2022-08-13 09:17 | Emergency (ER) | payer BC ==
[2022-08-13] MEDS ORDERED: Ketorolac Tromethamine 30 MG/ML VIAL ONE (10:23)
[2022-08-13] MEDS ORDERED: Metoclopramide 10 MG/10 ML UDCUP ONE (10:23)
[2022-08-13] MEDS ORDERED: diphenhydrAMINE 50 MG/ML VIAL ONE (10:23)
[2022-08-13] MEDS ORDERED: Metoclopramide HCl 10 MG/2 ML VIAL ONE (10:24)
[2022-08-13 11:10] LABS: BHCG - Serum Negative (NEGATIVE); Pregs Control Background? CLEAR/WHITE (CLR/WHITE); Pregs Control Bar Appear? YES (CONTROL BAR)
== END 2022-08-13 12:10 | disposition home or self-care (01) ==
LOC: ERS 09:17
DX: R51.9 Headache, unspecified (principal)
CPT/HCPCS: 36415; 84703; 96365; 96375; J1200; J1885; J2765

== ENCOUNTER 2022-12-31 07:12 | Emergency (ER) | payer BC ==
[2022-12-31] MEDS ORDERED: Cephalexin 250 MG CAP ONE (07:57)
[2022-12-31] MEDS ORDERED: Doxycycline 100 MG CAP ONE (07:57)
[2022-12-31 09:00] LABS: Pregnancy Test - Urine (BHCG) Negative (Negative); Pregu Control Background? CLEAR/WHITE (CLR/WHITE); Pregu Control Bar Appear? YES (CONTROL BAR); Specific Gravity 1.024 (1.002-1.036)
== END 2022-12-31 09:06 | disposition home or self-care (01) ==
LOC: ERS 07:12
DX: L03.032 Cellulitis of left toe (principal); E11.9 Type 2 diabetes mellitus without complications; Z79.84 Long term (current) use of oral hypoglycemic drugs
CPT/HCPCS: 81025

== ENCOUNTER 2023-02-16 09:32 | Inpatient (IN) | payer BC ==
[2023-02-16] MEDS ORDERED: Morphine 4 MG/ML VIAL ONE (10:15)
[2023-02-16 10:18] LABS: #Monocytes 0.7 thou/uL (0.11-0.59); #Neutrophils 11.2 thou/uL (1.40-6.50); %Basophils 0.3 % (0.0-1.0); %Eosinophils 6.2 % (0.0-10.0); %Lymphocytes 15.5 % (21.0-51.0); %Monocytes 4.3 % (0.0-10.0); %Neutrophils 73.3 % (42.0-75.0); Hematocrit 30.5 % (36.0-47.0); Hemoglobin 9.8 g/dL (12.0-16.0); Mean Corpuscular HGB CONC 32.1 g/dL (32.0-36.0); Mean Corpuscular Hemoglobin 27.8 pg (27.0-31.0); Mean Corpuscular Volume 86.6 fl (78.0-98.0); Mean Platelet Volume 10.2 fL (7.4-10.4); Platelet Count 374 10x3/uL (130-400); RBC Distribution Width 12.9 % (11.5-14.5); Red Blood Cell (RBC) Count 3.52 mill/uL (4.20-5.40); White Blood Cell (WBC) Count 15.3 10x3/uL (4.8-10.8)
[2023-02-16] MEDS ORDERED: Vancomycin 1 GM/200 ML (FROZEN) BAG ONE (10:29)
[2023-02-16 11:09] LABS: Anion Gap 12 mmol/L (10-20); BUN (Urea Nitrogen) 11 mg/dL (7.0-18.7); Calc. Creatinine Clearance 0 mL/min (70-130); Carbon Dioxide 21 mmol/L (22-29); Chloride 103 mmol/L (98-107); Estimated GFR 102; Potassium 3.9 mmol/L (3.5-5.1); Sodium 132 mmol/L (136-145)
[2023-02-16 11:10] LABS: ALT (SGPT) 10 U/L (8-55); AST (SGOT) 9 U/L (5-34); Albumin 3.7 g/dL (3.5-5.0); Alkaline Phosphatase 117 U/L (40-110); Bilirubin, Total 0.2 mg/dL (0.2-1.2); Calcium 9.4 mg/dL (7.6-10.4); Globulin 4.2 g/dL (2.4-3.5); Glucose 180 mg/dL (70-105); Protein, Total 7.9 g/dL (6.0-8.3)
[2023-02-16] MEDS ORDERED: HumaLOG 300 UNITS/3 ML VIAL SC PRN ×2 (14:12)
[2023-02-16] MEDS ORDERED: Glucagon 1 MG/ML KIT IM PRN (14:12)
[2023-02-16] MEDS ORDERED: diphenhydrAMINE 25 MG CAP PO PRN (14:12)
[2023-02-16] MEDS ORDERED: Acetaminophen 650 MG Suppository PR PRN (14:12)
[2023-02-16] MEDS ORDERED: Calcium Carbonate 500 MG ChewTAB PO PRN (14:12)
[2023-02-16] MEDS ORDERED: Moisturizing Cream (Eucerin) 113 GM JAR TOP PRN (14:12)
[2023-02-16] MEDS ORDERED: Loperamide HCl 2 MG CAP PO PRN (14:12)
[2023-02-16] MEDS ORDERED: Dextrose 50% Abboject 50 ML SYRINGE SLOW IVP PRN (14:12)
[2023-02-16] MEDS ORDERED: Zolpidem Tartrate 5 MG TAB PO PRN (14:12)
[2023-02-16] MEDS ORDERED: Senokot S 8.6-50 MG TAB PO PRN (14:12)
[2023-02-16] MEDS ORDERED: Dextrose 5% in Water 1,000 ML IV PRN (14:12)
[2023-02-16] MEDS ORDERED: Artificial Tear Sol 15 ML BOT EA EYE PRN (14:12)
[2023-02-16 15:49] VITALS: BMI 27.1
[2023-02-16] MEDS: HYDROcodone/Acetaminophen 7.5/325 mg Tablet PO PRN (15:53)
[2023-02-16] MEDS ORDERED: Vancomycin 1 GM in Premix Bag 1 BAG IVPB SCH (17:30)
[2023-02-16] MEDS: Clindamycin/D5W 600 MG in Premix Bag 1 BAG IVPB SCH (18:19)
[2023-02-16] MEDS: metFORMIN 500 MG TAB PO SCH (18:21)
[2023-02-16 19:12] LABS: Pregnancy Test - Urine (BHCG) Negative (Negative); Pregu Control Background? CLEAR/WHITE (CLR/WHITE); Pregu Control Bar Appear? YES (CONTROL BAR)
[2023-02-16] MEDS ORDERED: Vancomycin 1.5 GRAM/300 ML BAG 1.5 GM in Premix Bag 1 BAG IVPB SCH (21:00)
[2023-02-16] MEDS: Sodium Chloride 0.9% 1,000 ML IV SCH (21:11)
[2023-02-17] MEDS: HYDROcodone/Acetaminophen 5/325 mg Tablet PO PRN ×2 (00:04→22:11)
[2023-02-17] MEDS: VANCOMYCIN 1.25 GM/250 ML BAG 1.25 GM in Premix Bag 1 BAG IVPB SCH ×2 (05:05→18:24)
[2023-02-17] MEDS ORDERED: Midazolam HCl 2 mg/2 ml Vial ONE (07:10)
[2023-02-17] MEDS ORDERED: HYDROmorphone 0.5 MG/0.5 ML SYRINGE ONE (07:10)
[2023-02-17] MEDS ORDERED: Ondansetron PF 4 MG/2 ML Vial ONE (07:35)
[2023-02-17] MEDS ORDERED: Ketorolac Tromethamine 30 MG/ML VIAL ONE (07:35)
[2023-02-17] MEDS ORDERED: PROPOFOL 200 MG/20 ML VIAL ONE (07:35)
[2023-02-17] MEDS ORDERED: Lidocaine 1% PF 5 ML VIAL ONE (07:35)
[2023-02-17] MEDS ORDERED: Bupivacaine PF 0.5% 30 ML VIAL ONE (07:49)
[2023-02-17] MEDS ORDERED: Ondansetron HCl/PF 4 MG/2 ML Vial IVP PRN (08:13)
[2023-02-17] MEDS ORDERED: Promethazine HCl 25 MG/ML VIAL IM PRN (08:13)
[2023-02-17] MEDS ORDERED: HYDROmorphone 2 MG/ML VIAL SLOW IVP PRN (08:13)
[2023-02-17] MEDS ORDERED: PACU-Morphine 4MG/ML VIAL SLOW IVP PRN (08:13)
[2023-02-17] MEDS ORDERED: fentaNYL 50 mcg/mL 1 mL Vial ONE ×2 (08:31→08:42)
[2023-02-17] MEDS: metFORMIN 500 MG TAB PO SCH ×2 (09:23→16:41)
[2023-02-17] MEDS: Sodium Chloride 0.9% 1,000 ML IV SCH ×2 (09:23→21:44)
[2023-02-17] MEDS: Clindamycin/D5W 600 MG in Premix Bag 1 BAG IVPB SCH ×3 (09:23→16:41)
[2023-02-17] MEDS: Lisinopril 2.5 MG TAB PO SCH (09:24)
[2023-02-17] MEDS: HYDROcodone/Acetaminophen 7.5/325 mg Tablet PO PRN ×2 (09:24→14:15)
[2023-02-17] MEDS ORDERED: fentaNYL 50 mcg/mL 1 mL Vial SLOW IVP PRN (10:56)
[2023-02-17] MEDS: Ondansetron PF 4 MG/2 ML Vial IVP PRN ×2 (11:18→18:25)
[2023-02-17 12:04] LABS: #Eosinphils 0.5 thou/uL (0.0-0.7); #Monocytes 0.6 thou/uL (0.11-0.59); #Neutrophils 7.3 thou/uL (1.40-6.50); %Basophils 0.3 % (0.0-1.0); %Lymphocytes 22.1 % (21.0-51.0); %Monocytes 5.1 % (0.0-10.0); %Neutrophils 67.1 % (42.0-75.0); Hematocrit 29.1 % (36.0-47.0); Hemoglobin 9.4 g/dL (12.0-16.0); Mean Corpuscular HGB CONC 32.3 g/dL (32.0-36.0); Mean Corpuscular Volume 86.6 fl (78.0-98.0); Mean Platelet Volume 10.2 fL (7.4-10.4); Platelet Count 344 10x3/uL (130-400); RBC Distribution Width 12.8 % (11.5-14.5); Red Blood Cell (RBC) Count 3.36 mill/uL (4.20-5.40); White Blood Cell (WBC) Count 10.8 10x3/uL (4.8-10.8)
[2023-02-17 12:27] LABS: Anion Gap 14 mmol/L (10-20); BUN (Urea Nitrogen) 12 mg/dL (7.0-18.7); Calc. Creatinine Clearance 101 mL/min (70-130); Calcium 8.6 mg/dL (7.8-10.44); Carbon Dioxide 20 mmol/L (22-29); Chloride 104 mmol/L (98-107); Estimated GFR 73; Glucose 125 mg/dL (70-105); Potassium 4.4 mmol/L (3.5-5.1); Sodium 134 mmol/L (136-145)
[2023-02-17] MEDS ORDERED: Promethazine HCl 12.5 MG in Sodium Chloride 0.9% 50 ML IVPB PRN (14:00)
[2023-02-18] MEDS: Clindamycin/D5W 600 MG in Premix Bag 1 BAG IVPB SCH ×3 (02:23→16:12)
[2023-02-18 06:12] LABS: Vancomycin, Trough 38.4 ug/mL
[2023-02-18 06:13] LABS: Anion Gap 13 mmol/L (10-20); BUN (Urea Nitrogen) 22 mg/dL (7.0-18.7); Calc. Creatinine Clearance 46 mL/min (70-130); Calcium 8.3 mg/dL (7.8-10.44); Carbon Dioxide 20 mmol/L (22-29); Chloride 105 mmol/L (98-107); Estimated GFR 28; Glucose 118 mg/dL (70-105); Potassium 4.4 mmol/L (3.5-5.1); Sodium 134 mmol/L (136-145)
[2023-02-18] MEDS: VANCOMYCIN 1.25 GM/250 ML BAG 1.25 GM in Premix Bag 1 BAG IVPB SCH (06:14)
[2023-02-18] MEDS ORDERED: VANCOMYCIN 1.25 GM/250 ML BAG 1.25 GM in Premix Bag 1 BAG IVPB SCH (06:15)
[2023-02-18] MEDS: Sodium Chloride 0.9% 1,000 ML IV SCH (06:22)
[2023-02-18] MEDS: metFORMIN 500 MG TAB PO SCH ×2 (08:07→16:12)
[2023-02-18] MEDS: HYDROcodone/Acetaminophen 7.5/325 mg Tablet PO PRN (08:07)
[2023-02-18] MEDS: Lisinopril 2.5 MG TAB PO SCH (08:07)
[2023-02-18] MEDS ORDERED: Lactated Ringer's 1,000 ML IV SCH (12:15)
[2023-02-18] MEDS ORDERED: Lactated Ringer's 250 ML IV SCH (12:15)
[2023-02-18] MEDS: Lactated Ringer's 1,000 ML IV SCH ×2 (12:55→18:13)
[2023-02-18] MEDS: HYDROcodone/Acetaminophen 5/325 mg Tablet PO PRN (16:12)
[2023-02-18] MEDS: Metoclopramide 10 MG/10 ML UDCUP PO SCH ×2 (16:12→19:53)
[2023-02-18 18:48] LABS: Vancomycin, Random 30.6 ug/mL (See Comment)
[2023-02-18] MEDS ORDERED: Saccharomyces boulardii 250 MG CAP PO SCH (21:15)
[2023-02-19] MEDS: Lactated Ringer's 1,000 ML IV SCH ×3 (00:46→15:07)
[2023-02-19] MEDS: Clindamycin/D5W 600 MG in Premix Bag 1 BAG IVPB SCH ×2 (00:46→08:52)
[2023-02-19] MEDS: Saccharomyces boulardii 250 MG CAP PO SCH (08:52)
[2023-02-19] MEDS: HYDROcodone/Acetaminophen 5/325 mg Tablet PO PRN (08:52)
[2023-02-19] MEDS: Metoclopramide 10 MG/10 ML UDCUP PO SCH ×2 (08:52→12:28)
[2023-02-19] MEDS: metFORMIN 500 MG TAB PO SCH (08:52)
[2023-02-19 09:53] LABS: #Eosinphils 0.2 thou/uL (0.0-0.7); #Monocytes 0.5 thou/uL (0.11-0.59); #Neutrophils 8.2 thou/uL (1.40-6.50); %Basophils 0.2 % (0.0-1.0); %Eosinophils 1.5 % (0.0-10.0); %Lymphocytes 15.9 % (21.0-51.0); %Monocytes 4.7 % (0.0-10.0); %Neutrophils 77.2 % (42.0-75.0); Hematocrit 27.7 % (36.0-47.0); Hemoglobin 9.1 g/dL (12.0-16.0); Mean Corpuscular HGB CONC 32.9 g/dL (32.0-36.0); Mean Corpuscular Hemoglobin 28.2 pg (27.0-31.0); Mean Corpuscular Volume 85.8 fl (78.0-98.0); Mean Platelet Volume 10.7 fL (7.4-10.4); Platelet Count 367 10x3/uL (130-400); RBC Distribution Width 12.7 % (11.5-14.5); Red Blood Cell (RBC) Count 3.23 mill/uL (4.20-5.40); White Blood Cell (WBC) Count 10.6 10x3/uL (4.8-10.8)
[2023-02-19 10:13] LABS: Anion Gap 13 mmol/L (10-20); BUN (Urea Nitrogen) 30 mg/dL (7.0-18.7); Calc. Creatinine Clearance 34 mL/min (70-130); Calcium 8.7 mg/dL (7.8-10.44); Carbon Dioxide 21 mmol/L (22-29); Chloride 105 mmol/L (98-107); Estimated GFR 20; Glucose 128 mg/dL (70-105); Potassium 3.9 mmol/L (3.5-5.1); Sodium 135 mmol/L (136-145)
[2023-02-19] MEDS ORDERED: metroNIDAZOLE 500 MG in Premix Bag 1 BAG IVPB SCH (14:00)
[2023-02-19] MEDS: HYDROcodone/Acetaminophen 7.5/325 mg Tablet PO PRN (15:06)
[2023-02-19] MEDS: metroNIDAZOLE 500 MG in Premix Bag 1 BAG IVPB SCH (15:07)
[2023-02-19] MEDS ORDERED: Vancomycin Dose by Levels Sliding Scale (Wt 71-99) FS SCH (19:00)
[2023-02-19] MEDS ORDERED: Vancomycin HCl 500 MG in Sodium Chloride 0.9% 100 ML IV SCH (20:00)
[2023-02-19] MEDS: Metoclopramide 10 MG/10 ML UDCUP PO PRN (20:28)
[2023-02-19] MEDS: Acetaminophen 325 MG TAB PO PRN (20:29)
[2023-02-19] MEDS: Insulin Glargine 30 UNITS/0.3 ML VIAL SC SCH (21:00)
[2023-02-20] MEDS: Lactated Ringer's 1,000 ML IV SCH ×4 (00:05→21:43)
[2023-02-20] MEDS: metroNIDAZOLE 500 MG in Premix Bag 1 BAG IVPB SCH ×3 (00:37→17:02)
[2023-02-20] MEDS: Acetaminophen 325 MG TAB PO PRN (08:14)
[2023-02-20] MEDS: Saccharomyces boulardii 250 MG CAP PO SCH (08:18)
[2023-02-20 08:37] LABS: #Eosinphils 0.1 thou/uL (0.0-0.7); #Monocytes 0.7 thou/uL (0.11-0.59); #Neutrophils 7.5 thou/uL (1.40-6.50); %Basophils 0.3 % (0.0-1.0); %Eosinophils 1.4 % (0.0-10.0); %Lymphocytes 17.8 % (21.0-51.0); %Monocytes 6.9 % (0.0-10.0); %Neutrophils 73.1 % (42.0-75.0); Hematocrit 26.5 % (36.0-47.0); Hemoglobin 8.8 g/dL (12.0-16.0); Mean Corpuscular HGB CONC 33.2 g/dL (32.0-36.0); Mean Corpuscular Hemoglobin 27.7 pg (27.0-31.0); Mean Corpuscular Volume 83.3 fl (78.0-98.0); Mean Platelet Volume 10.9 fL (7.4-10.4); Platelet Count 344 10x3/uL (130-400); RBC Distribution Width 12.5 % (11.5-14.5); Red Blood Cell (RBC) Count 3.18 mill/uL (4.20-5.40); White Blood Cell (WBC) Count 10.2 10x3/uL (4.8-10.8)
[2023-02-20 08:59] LABS: Anion Gap 14 mmol/L (10-20); BUN (Urea Nitrogen) 28 mg/dL (7.0-18.7); Calc. Creatinine Clearance 38 mL/min (70-130); Calcium 8.7 mg/dL (7.8-10.44); Carbon Dioxide 20 mmol/L (22-29); Chloride 106 mmol/L (98-107); Estimated GFR 22; Glucose 88 mg/dL (70-105); Potassium 4.2 mmol/L (3.5-5.1); Sodium 136 mmol/L (136-145)
[2023-02-20] MEDS: fentaNYL 50 mcg/mL 1 mL Vial SLOW IVP PRN (10:25)
[2023-02-20] MEDS: HYDROcodone/Acetaminophen 7.5/325 mg Tablet PO PRN ×2 (13:08→18:21)
[2023-02-20 20:27] LABS: Vancomycin, Random 15.7 ug/mL (See Comment)
[2023-02-20] MEDS ORDERED: Vancomycin HCl 500 MG in Sodium Chloride 0.9% 100 ML IV SCH (21:00)
[2023-02-20] MEDS: Insulin Glargine 30 UNITS/0.3 ML VIAL SC SCH (21:33)
[2023-02-20] MEDS: HYDROcodone/Acetaminophen 5/325 mg Tablet PO PRN (21:39)
[2023-02-21] MEDS: metroNIDAZOLE 500 MG in Premix Bag 1 BAG IVPB SCH ×3 (01:10→16:40)
[2023-02-21] MEDS: Metoclopramide 10 MG/10 ML UDCUP PO PRN ×3 (03:51→22:24)
[2023-02-21] MEDS: HYDROcodone/Acetaminophen 5/325 mg Tablet PO PRN ×3 (03:52→18:19)
[2023-02-21] MEDS: Lactated Ringer's 1,000 ML IV SCH (06:52)
[2023-02-21] MEDS: Saccharomyces boulardii 250 MG CAP PO SCH (09:01)
[2023-02-21 09:11] LABS: #Eosinphils 0.2 thou/uL (0.0-0.7); #Monocytes 0.7 thou/uL (0.11-0.59); #Neutrophils 6.7 thou/uL (1.40-6.50); %Basophils 0.3 % (0.0-1.0); %Eosinophils 1.6 % (0.0-10.0); %Lymphocytes 21.4 % (21.0-51.0); %Monocytes 7.5 % (0.0-10.0); %Neutrophils 68.6 % (42.0-75.0); Hematocrit 26.7 % (36.0-47.0); Hemoglobin 8.9 g/dL (12.0-16.0); Mean Corpuscular HGB CONC 33.3 g/dL (32.0-36.0); Mean Corpuscular Hemoglobin 28.1 pg (27.0-31.0); Mean Corpuscular Volume 84.2 fl (78.0-98.0); Mean Platelet Volume 10.3 fL (7.4-10.4); Platelet Count 343 10x3/uL (130-400); RBC Distribution Width 12.6 % (11.5-14.5); Red Blood Cell (RBC) Count 3.17 mill/uL (4.20-5.40); White Blood Cell (WBC) Count 9.8 10x3/uL (4.8-10.8)
[2023-02-21 09:32] LABS: Anion Gap 14 mmol/L (10-20); BUN (Urea Nitrogen) 27 mg/dL (7.0-18.7); Calc. Creatinine Clearance 42 mL/min (70-130); Carbon Dioxide 23 mmol/L (22-29); Chloride 103 mmol/L (98-107); Estimated GFR 26; Glucose 86 mg/dL (70-105); Potassium 4.6 mmol/L (3.5-5.1); Sodium 135 mmol/L (136-145)
[2023-02-21] MEDS ORDERED: Ergocalciferol 1.25 MG(50,000 UNITS) CAP PO SCH (12:00)
[2023-02-21] MEDS: Sodium Chloride 0.9% 1,000 ML IV SCH (12:32)
[2023-02-21 16:03] LABS: Creatinine, Urine 49.25 mg/dL (47-110)
[2023-02-21 21:29] LABS: Vancomycin, Random 14.5 ug/mL (See Comment)
[2023-02-21] MEDS ORDERED: Vancomycin HCl 750 MG in Sodium Chloride 0.9% 250 ML 250 ML IVPB SCH (22:00)
[2023-02-21] MEDS: Insulin Glargine 30 UNITS/0.3 ML VIAL SC SCH (22:14)
[2023-02-21] MEDS: HYDROcodone/Acetaminophen 7.5/325 mg Tablet PO PRN (22:25)
[2023-02-22] MEDS: metroNIDAZOLE 500 MG in Premix Bag 1 BAG IVPB SCH ×3 (01:45→17:05)
[2023-02-22] MEDS: Sodium Chloride 0.9% 1,000 ML IV SCH ×3 (02:30→15:42)
[2023-02-22 06:28] LABS: #Eosinphils 0.2 thou/uL (0.0-0.7); #Monocytes 0.7 thou/uL (0.11-0.59); #Neutrophils 6.7 thou/uL (1.40-6.50); %Basophils 0.4 % (0.0-1.0); %Eosinophils 1.8 % (0.0-10.0); %Lymphocytes 22.1 % (21.0-51.0); %Monocytes 7.3 % (0.0-10.0); Hematocrit 27.5 % (36.0-47.0); Hemoglobin 8.8 g/dL (12.0-16.0); Mean Corpuscular Hemoglobin 26.9 pg (27.0-31.0); Mean Corpuscular Volume 84.1 fl (78.0-98.0); Mean Platelet Volume 10.9 fL (7.4-10.4); Platelet Count 357 10x3/uL (130-400); RBC Distribution Width 12.7 % (11.5-14.5); Red Blood Cell (RBC) Count 3.27 mill/uL (4.20-5.40); White Blood Cell (WBC) Count 9.8 10x3/uL (4.8-10.8)
[2023-02-22 07:00] LABS: Anion Gap 10 mmol/L (10-20); BUN (Urea Nitrogen) 24 mg/dL (7.0-18.7); Calc. Creatinine Clearance 46 mL/min (70-130); Calcium 8.9 mg/dL (7.8-10.44); Carbon Dioxide 23 mmol/L (22-29); Chloride 105 mmol/L (98-107); Estimated GFR 28; Glucose 78 mg/dL (70-105); Potassium 4.4 mmol/L (3.5-5.1); Sodium 134 mmol/L (136-145)
[2023-02-22] MEDS: Saccharomyces boulardii 250 MG CAP PO SCH (08:28)
[2023-02-22] MEDS: Acetaminophen 325 MG TAB PO PRN (08:28)
[2023-02-22] MEDS ORDERED: Amlodipine 5 MG TAB PO SCH (11:45)
[2023-02-22] MEDS: HYDROcodone/Acetaminophen 5/325 mg Tablet PO PRN ×2 (15:25→20:35)
[2023-02-22] MEDS: Insulin Glargine 30 UNITS/0.3 ML VIAL SC SCH (20:28)
[2023-02-22 21:39] LABS: Vancomycin, Random 16.6 ug/mL (See Comment)
[2023-02-22] MEDS ORDERED: Vancomycin HCl 500 MG in Sodium Chloride 0.9% 100 ML IV SCH (23:00)
[2023-02-23] MEDS: Sodium Chloride 0.9% 1,000 ML IV SCH ×2 (01:58→13:47)
[2023-02-23] MEDS: metroNIDAZOLE 500 MG in Premix Bag 1 BAG IVPB SCH ×2 (01:58→11:00)
[2023-02-23] MEDS: Metoclopramide 10 MG/10 ML UDCUP PO PRN (04:14)
[2023-02-23] MEDS: HYDROcodone/Acetaminophen 5/325 mg Tablet PO PRN ×2 (04:14→15:18)
[2023-02-23 07:25] LABS: Anion Gap 10 mmol/L (10-20); BUN (Urea Nitrogen) 20 mg/dL (7.0-18.7); Calc. Creatinine Clearance 51 mL/min (70-130); Calcium 8.3 mg/dL (7.8-10.44); Carbon Dioxide 24 mmol/L (22-29); Chloride 106 mmol/L (98-107); Estimated GFR 32; Glucose 82 mg/dL (70-105); Potassium 4.3 mmol/L (3.5-5.1); Sodium 136 mmol/L (136-145)
[2023-02-23] MEDS: Saccharomyces boulardii 250 MG CAP PO SCH (08:54)
[2023-02-23] MEDS ORDERED: Amlodipine 5 MG TAB PO SCH (09:00)
[2023-02-23] MEDS: fentaNYL 50 mcg/mL 1 mL Vial SLOW IVP PRN (10:11)
[2023-02-23 12:52] VITALS: BP 147/91; TEMP 98.8
[2023-02-28] MEDS ORDERED: Ergocalciferol 1.25 MG(50,000 UNITS) CAP PO SCH (09:00)
== END 2023-02-23 16:30 | disposition home or self-care (01) | DRG 240 ==
LOC: ERS 09:32 → T4-B 14:08
PROVIDERS: ADMIT Family Medicine; ATTEND Internal Medicine
PROC: 0Y6N0Z9 Detachment at Left Foot, Partial 1st Ray, Open Approach (ICD-10-PCS; principal; 2023-02-17)
DX: E11.52 Type 2 diabetes mellitus with diabetic peripheral angiopathy with gangrene (principal); E87.20 Acidosis, unspecified; M87.877 Other osteonecrosis, right toe(s); M86.8X8 Other osteomyelitis, other site; N18.4 Chronic kidney disease, stage 4 (severe); N17.9 Acute kidney failure, unspecified; N25.81 Secondary hyperparathyroidism of renal origin; E11.69 Type 2 diabetes mellitus with other specified complication; E11.621 Type 2 diabetes mellitus with foot ulcer; E55.9 Vitamin D deficiency, unspecified; J45.909 Unspecified asthma, uncomplicated; F41.9 Anxiety disorder, unspecified; F32.A Depression, unspecified; L97.529 Non-pressure chronic ulcer of other part of left foot with unspecified severity; D63.1 Anemia in chronic kidney disease; Z98.890 Other specified postprocedural states; Z90.49 Acquired absence of other specified parts of digestive tract; Z88.1 Allergy status to other antibiotic agents; Z88.8 Allergy status to other drugs, medicaments and biological substances; Z88.0 Allergy status to penicillin; Z79.84 Long term (current) use of oral hypoglycemic drugs; Z79.899 Other long term (current) drug therapy
CPT/HCPCS: 36415; 36416; 76770; 80048; 80053; 80202; 81025; 82306; 82570; 83036; 83970; 84156; 85025; 85652; 86140; 88305; 96365; 96375; 97139; J1170; J1650; J1815; J1885; J2250; J2270; J2405; J2550; J2704; J3010; J3370; J3370-JW; J3490; J7050; J7120; S0020

== ENCOUNTER 2023-12-28 21:46 | Emergency (ER) | payer BC, SELFPAY ==
[2023-12-28 22:29] LABS: Bacteria/HPF None Seen HPF (None Seen); Bilirubin Negative (Negative); Blood, Urine Negative (Negative); CAUTI Indications for Culture Pelvic or flank pain; Clarity Clear (Clear); Glucose, Urine (Dipstick) Greater than 1000 mg/dL (Negative); Ketone, Urine Negative (Negative); Leukocyte Negative Leu/uL (Negative); Nitrite Negative (Negative); Protein, Urine (Dipstick) 100 mg/dL (Neg-Trace); RBC/HPF 0-3 HPF (0-3); Specific Gravity, Urine 1.037 (1.002-1.036); Squamous Epithelial 0-3 HPF (0-3); Urobilinogen Normal mg/dL (Less than 2); WBC/HPF 0-3 HPF (0-3); pH, Urine 5.5 (5.0-9.0)
[2023-12-28 22:34] LABS: Urine Culture Reflex No No
[2023-12-28 23:19] LABS: #Basophils 0.04 10x3/uL (0.0-0.2); %Basophils 0.3 % (0.0-1.0); %Lymphocytes 30.1 % (21.0-51.0); %Neutrophils 59.2 % (42.0-75.0); Hematocrit 36.6 % (36.0-47.0); Hemoglobin 12.1 g/dL (12.0-16.0); Mean Corpuscular HGB CONC 33.1 g/dL (32.0-36.0); Mean Corpuscular Hemoglobin 27.9 pg (27.0-31.0); Mean Corpuscular Volume 84.3 fL (78.0-98.0); Mean Platelet Volume 11.6 fL (7.4-10.4); Platelet Count 340 10x3/uL (130-400); RBC Distribution Width 13.2 % (11.5-14.5); Red Blood Cell (RBC) Count 4.34 mill/uL (4.20-5.40)
[2023-12-28 23:36] LABS: ALT (SGPT) 15 U/L (8-55); AST (SGOT) 12 U/L (5-34); Albumin 3.1 g/dL (3.5-5.0); Alkaline Phosphatase 88 U/L (40-110); Anion Gap 12 mmol/L (10-20); BUN (Urea Nitrogen) 15 mg/dL (7.0-18.7); Bilirubin, Total 0.2 mg/dL (0.2-1.2); Calc. Creatinine Clearance 0 mL/min (70-130); Calcium 9.3 mg/dL (7.8-10.44); Carbon Dioxide 24 mmol/L (22-29); Chloride 105 mmol/L (98-107); Estimated GFR 78; Glucose 288 mg/dL (70-105); Lipase 31 U/L (8-78); Potassium 3.5 mmol/L (3.5-5.1); Protein, Total 7.1 g/dL (6.0-8.3); Sodium 137 mmol/L (136-145)
[2023-12-28 23:57] LABS: Pregnancy Test - Urine (BHCG) Negative (Negative); Pregu Control Background? CLEAR/WHITE (CLR/WHITE); Pregu Control Bar Appear? YES (CONTROL BAR)
[2023-12-28 23:58] LABS: Specific Gravity 1.037 (1.002-1.036)
[2023-12-29] MEDS ORDERED: Ketorolac Tromethamine 30 MG (1 mL) VIAL ONE (00:08)
== END 2023-12-29 02:55 | disposition home or self-care (01) ==
LOC: ERS 21:46
DX: R10.9 Unspecified abdominal pain (principal); E11.65 Type 2 diabetes mellitus with hyperglycemia; F17.210 Nicotine dependence, cigarettes, uncomplicated; J45.909 Unspecified asthma, uncomplicated; F41.8 Other specified anxiety disorders; Z55.0 Illiteracy and low-level literacy
CPT/HCPCS: 36415; 36416; 74176; 80053; 81001; 81025; 83690; 85025; 96374; J1885

== ENCOUNTER 2024-03-19 11:50 | Emergency (ER) | payer SELFPAY ==
[2024-03-19] MEDS ORDERED: Acetaminophen 500 MG TAB ONE (13:00)
[2024-03-19 13:50] LABS: Influenza A by NAA Not Detected (NotDetected); Influenza B by NAA Not Detected (NotDetected); SARS-CoV-2 NAA Rapid Test Not Detected (NotDetected)
== END 2024-03-19 14:47 | disposition home or self-care (01) ==
LOC: ERS 11:50
DX: S39.012A Strain of muscle, fascia and tendon of lower back, initial encounter (principal); J02.9 Acute pharyngitis, unspecified; H92.02 Otalgia, left ear; E11.9 Type 2 diabetes mellitus without complications; F17.210 Nicotine dependence, cigarettes, uncomplicated; X58.XXXA Exposure to other specified factors, initial encounter; Z79.4 Long term (current) use of insulin
CPT/HCPCS: 87081; 87430; 99283

== ENCOUNTER 2024-03-22 20:03 | Emergency (ER) | payer SELFPAY ==
[2024-03-22] MEDS ORDERED: Lidocaine 1% w/Epinephrine 1:100K 20 ML VIAL ONE (21:38)
[2024-03-22] MEDS ORDERED: Acetaminophen 500 MG TAB ONE (22:19)
[2024-03-22] MEDS ORDERED: Ibuprofen 800 MG TAB ONE (22:19)
== END 2024-03-22 22:24 | disposition home or self-care (01) ==
LOC: ERS 20:03
DX: L02.214 Cutaneous abscess of groin (principal); L03.314 Cellulitis of groin; E11.9 Type 2 diabetes mellitus without complications; F17.210 Nicotine dependence, cigarettes, uncomplicated; Z79.4 Long term (current) use of insulin; Z79.899 Other long term (current) drug therapy
CPT/HCPCS: 10060

== ENCOUNTER 2024-05-24 10:13 | Emergency (ER) | payer SELFPAY ==
[2024-05-24] MEDS ORDERED: Acetaminophen 500 MG TAB ONE (10:30)
== END 2024-05-24 11:08 | disposition home or self-care (01) ==
LOC: ERS 10:13
DX: G56.01 Carpal tunnel syndrome, right upper limb (principal); E11.9 Type 2 diabetes mellitus without complications; F17.210 Nicotine dependence, cigarettes, uncomplicated; Z79.4 Long term (current) use of insulin
CPT/HCPCS: 99283

== ENCOUNTER 2024-06-18 13:38 | Emergency (ER) | payer SELFPAY ==
[2024-06-18] MEDS ORDERED: Ketorolac Tromethamine 30 MG (1 mL) VIAL ONE (14:49)
== END 2024-06-18 15:20 | disposition home or self-care (01) ==
LOC: ERS 13:38
DX: B34.9 Viral infection, unspecified (principal); E11.9 Type 2 diabetes mellitus without complications; F17.210 Nicotine dependence, cigarettes, uncomplicated
CPT/HCPCS: 87428; 99283; J1885

== ENCOUNTER 2024-07-28 11:05 | Emergency (ER) | payer SELFPAY ==
[2024-07-28] MEDS ORDERED: Ketorolac Tromethamine 30 MG (1 mL) VIAL ONE (13:03)
== END 2024-07-28 13:54 | disposition home or self-care (01) ==
LOC: ERS 11:05
DX: J18.9 Pneumonia, unspecified organism (principal); E11.9 Type 2 diabetes mellitus without complications; F17.210 Nicotine dependence, cigarettes, uncomplicated
CPT/HCPCS: 71046; 87081; 87428; 87430; 96372; J1885

== ENCOUNTER 2025-05-23 08:00 | Emergency (ER) | payer SELFPAY | END 2025-05-23 10:30 | disposition home or self-care (01) | LOC: ERS 08:00 | DX: J06.9 Acute upper respiratory infection, unspecified (principal); E11.9 Type 2 diabetes mellitus without complications; F17.210 Nicotine dependence, cigarettes, uncomplicated; Z79.4 Long term (current) use of insulin | CPT/HCPCS: 87081; 87428; 87430 ==